=== PATIENT | female | born 2000 | race Two or more races ===

== ENCOUNTER 2019-11-01 05:05 | Inpatient (IN) | payer OTHER, SELFPAY ==
[2019-11-01] VITALS (127 sets, daily range): BP systolic 79–125; BP diastolic 46–78; PULSE 81–133; RESP 18; TEMP 36.8–37.1; O2SAT 92–100; BMI 33.2
--- NOTE | 2019-11-01 05:28 | LDADM ---
This patient, Caitlyn Hernandes, was admitted to Labor/Delivery/Recovery 106 on 11/01/19 at 05:05. Plans for labor, pain management and were discussed with patient. Patient/family oriented to hospital policies and general routines including ID bracelet, bed and alarms, visiting hours, pain management, procedures, bathroom and other care routines, personal items, smoking policy, room service/diet and guest tray routines, infant security routines, and visiting hours. Patient/Family are encouraged to report perceived risks to care and to ask questions if they do not understand what they are told or what they should do. See OBIX for further documentation.
[2019-11-01 06:20] LABS: Basophils Percent Auto 0.2 % (0.2-1.2); Eosinophils Percent Auto 0.3 % (0-4.4); Hematocrit 33.6 % (37.0-47.0); Hemoglobin 11.1 g/dL (12.0-15.0); Immature Granulocyte Absolute 0.07 K/mm3 (0.00-0.031); Immature Granulocyte Percent A 0.6 % (0-0.5); Lymphocytes Absolute Auto 3.99 K/mm3 (0.9-3.2); Lymphocytes Percent Auto 34.5 % (18.3-44.2); Mean Corpuscular Hemoglobin 29.5 pg (26-34); Mean Corpuscular Volume 89.4 fl (80-100); Mean Platelet Volume 11.3 fl (7.4-10.4); Monocytes Absolute Auto 0.6 K/mm3 (0.1-0.6); Monocytes Percent Auto 5.4 % (2.6-8.5); Neutrophils Absolute Auto 6.8 K/mm3 (1.3-6.7); Platelet Count Result 188 k/mm3 (150-375); Red Blood Count 3.76 M/mm3 (4.2-5.4); Red Cell Distribution Width 12.9 % (11.5-14.5); White Blood Count 11.6 K/mm3 (4.5-10.0)
--- NOTE | 2019-11-01 07:19 | WPDOBADMIT ---
Obstetrics - Admit Note Admission Note: record reviewed. No pertinent additions to the history and/or any subsequent changes in the physical findings that are not consistent with the expected course of the were found.SROM 0200, clear fluid Additions to the history and/or subsequent changes in the physical findings follow. None.
[2019-11-01 07:56] LABS: Rapid Plasma Reagin Non-Reactive (NonReactive)
[2019-11-01] MEDS: LACTATED RINGERS 1,000 ML 125 ML IV CONT (13:19)
--- NOTE | 2019-11-01 18:07 | PM.OBPRVD ---
OB - Delivery Note Procedure Delivery date: 11/01/19 Intrapartal events: None Induction method: none Delivery monitor: external FHT Route of delivery: Laceration description: Vaginal - 1st Degree Delivery repair: vicryl Estimated blood loss (mL): 42 Anesthesia type: Epidural [place] Baby Date of : 11/01/19 Time of : 17:42 Weeks of gestation at delivery: 37 Infant gender: Female Weight (pounds): 6 Weight (ounces): 1 presentation: vertex position: Left Occiput Anterior Placenta delivery description: Spontaneous cord vessel description: 3 Vessels score one minute: 9 score five minutes: 9 Narrative: Mother and baby in stable condition. Cord clamped at 4 minutes. Cord gasses collected and given to staff. 1cc arterial/2cc venous.
[2019-11-01] MEDS: WITCH HAZEL 40 PADS 1 PAD (19:56)
[2019-11-01] MEDS: BENZOCAINE 20% AER SPR (*SP) 56 GM CAN 1 SPRAY (19:56)
--- NOTE | 2019-11-01 21:50 | PC.NURSE ---
Addendum entered by Lisa Cazares RN 11/01/19 21:52: Please enter this note as occurring at 2031 on 11/01/19. Original Note: Patient transferred to post room #284 in wheelchair. Oriented to unit, room, information board, rooming in, admission packet and security measures. Patient verbalizes understanding.
[2019-11-02 05:46] LABS: Hematocrit 30.7 % (37.0-47.0); Hemoglobin 10.2 g/dL (12.0-15.0)
[2019-11-02 07:50] VITALS: BP 104/69; PULSE 88; RESP 18; TEMP 36.3
--- NOTE | 2019-11-02 10:43 | PM.OBPNVD ---
OB - PN: Subj Subjective Date/time seen: 11/02/19 10:43 OB - PN: Obj Data Labs CBC & Chem 7: 11/02/19 05:28 Labs: Laboratory Results - last 24 hr 11/02/19 05:28 Hgb 10.2 L Hct 30.7 L OB - PN A/P Plan Plan: routine care Time Spent With Patient Time: Total time spent is greater than 50% in coordination of care (as documented) at patient's floor/unit and/or counseling patient: Time with patient: less than 15 minutes Review of Systems Review of Systems: All systems reviewed & are unremarkable except as noted in HPI and below Exam Narrative: Exam Narrative: Fundus firm and vaginal flow appropriate Const: General: comfortable Resp: Effort & Inspection: normal respiratory effort Psych: Appearance: grossly normal Affect: normal affect Attitude: cooperative Judgement: Good judgement present (Psych)
--- NOTE | 2019-11-02 11:28 | WPDANLDPN2 ---
Anes-Prog Note L&D Date/Time: 11/02/19 11:28 Comfortable throughout: labor and delivery Neuraxial method: epidural Epidural/Spinal procedure site: clean & non-tender Neuro status: Neuro function grossly intact. Cardiovascular status: normal Respiratory status: normal Mental status: baseline Post-Op hydration status: normal Vital Signs: Last Vital Signs Temp 97.4 F L 11/02/19 07:50 Pulse 88 11/02/19 07:50 Resp 18 11/02/19 07:50 BP 104/69 11/02/19 07:50 Pulse Ox 100 11/01/19 20:32 I/O: Intake & Output 11/01/19 11/02/19 11/02/19 23:59 07:59 15:59 Intake Total 1500 Output Total 78 Balance 1422 Post-procedural complaints: none Patient feedback: Patient satisfied with anesthetic care.
[2019-11-02 18:55] VITALS: BP 108/56; PULSE 82; RESP 16; TEMP 37
[2019-11-03 07:00] VITALS: BP 100/65; PULSE 74; RESP 18; TEMP 36.4
[2019-11-03] MEDS: TETANUS,DIPHTHERIA,AC PERTUSSIS ADULT 0.5 ML (ADACEL) IM (09:34)
--- NOTE | 2019-11-03 11:59 | PC.NURSE ---
Pt. given information on how to watch Mom/Baby DVD at home or on a wireless device.
--- NOTE | 2019-11-03 13:02 | PM.OBPNVD ---
OB - PN: Subj Subjective Date/time seen: 11/03/19 13:02 OB - PN: Obj Data Labs CBC & Chem 7: 11/02/19 05:28 OB - PN A/P Plan day: 2 Plan: routine care, discharge home and other Comments: Follow up in 4 weeks. Time Spent With Patient Time: Total time spent is greater than 50% in coordination of care (as documented) at patient's floor/unit and/or counseling patient: Time with patient: less than 15 minutes Review of Systems Review of Systems: All systems reviewed & are unremarkable except as noted in HPI and below Exam Narrative: Exam Narrative: Fundus firm and vaginal flow controlled. Const: General: comfortable Resp: Effort & Inspection: normal respiratory effort Psych: Appearance: grossly normal Mental Status: mental status grossly normal Affect: normal affect Attitude: cooperative Judgement: Good judgement present (Psych)
--- NOTE | 2019-11-03 13:03 | PM.OBDSVD ---
DS: Diagnosis Admitting Diagnosis Admitting Diagnosis: Labor OB - DS: Summary OB Procedures : None OB Procedures Intrapartum: Spontaneous Vag Delivery OB Procedures: : None Time Spent with Patient Time attestation: Total time spent providing and/or coordinating discharge services: Discharge Plan Discharge Attending physician on discharge: Meron Darling Discharging Clinician: Meron Darling Patient Disposition: Home, Self-Care Activity: pelvic rest Diet: as tolerated Patient Instructions: Antibiotic Form Stand Alone Forms: General Discharge Information Follow-up/Referrals: James Flor MD [Physician] - Discharge Medications: Continued [id number]-[id number] ac-dha 30 mg iron- 1.4 mg-300 mg Combo Pack See Rx Instructions .ROUTE .COMPLEX RF: 0 Date of admission: 11/01/19 05:05 Primary Care Provider: UNKNOWN,DOCTOR Admitting Provider: James Flor Attending physician on admission: James Flor
[2019-11-04 11:34] VITALS: BP 106/66; PULSE 80; RESP 18; TEMP 36.7
== END 2019-11-03 13:44 | disposition home or self-care (01) | DRG 560 ==
LOC: ANHLDR 05:53 → ANHOB2 20:45
PROVIDERS: Advanced Practice Midwife; Admitting Provider Obstetrics & Gynecology; Visit Provider Obstetrics & Gynecology
DX: O70.0 First degree perineal laceration during delivery (principal); Z3A.37 37 weeks gestation of pregnancy; Z37.0 Single live birth
CPT/HCPCS: 36415; 84112; 85014; 85018; 85025; 86592; 86850; 86900; 86901; 90715; A9270; J2590; J2795; J7120